=== PATIENT | female | born 1985 | race Hispanic/Latino ===

== ENCOUNTER 2018-10-20 21:03 | Emergency (ER) | payer OTHER ==
[2018-10-20 21:51] VITALS: BMI 25.9
[2018-10-20 22:19] LABS: SQUAMOUS EPITHIAL 3 /hpf (0-5); URINE BACTERIA FEW (<OCC); URINE BILIRUBIN NEGATIVE (NEGATIVE); URINE BLOOD NEGATIVE (NEGATIVE); URINE CLARITY Clear (Clear); URINE COLOR Yellow (YELLOW); URINE GLUCOSE (UA) NORMAL (Normal); URINE LEUKOCYTE ESTERASE 3+ Leu/uL (Negative); URINE PROTEIN NEGATIVE (NEGATIVE); URINE UROBILINOGEN NORMAL mg/dL (0.2-1.0)
[2018-10-20] MEDS ORDERED: Dextrose 5%/Lactated Ringer's 1,000 ML IV SCH (23:45)
[2018-10-20] MEDS ORDERED: Lactated Ringer's 1,000 ML IV SCH (23:45)
--- NOTE | 2018-10-21 00:20 | OBHP ---
Datetime: 10/20/2018 23:41 IP Adm Impression: , intrauterine ; No Active Labor; Intact Membranes IP Admit Plan: Observation/Evaluation Admit Comment, IP Provider: 32 y female G1 with an IUP t 36.4 weeks and sent from Dr. Richards's office for monitoring because FHT's in the office were aroun 115-120/ Pt denied any LOF, VB or VD and admits to adequate FM. + Velamentous cord Insertion detected in US today. PMHx Hypothyroidism PSHx Negative NKDA Social Hx Negative x 3 Medications :PNV, Levothyroxine and Calcium A/P: IUP at 36.4 weeks Velamentous cord insertionmm per US today Low Baseline of FHT's with mild variables NST Reactive Irregular contractions not painful and barely perceived by the patient UA with +LE and 20 WBC's and some dehydration D/W Dr. Richards and request to keep patient on observation with continuous monitoring Labs ordered and IV Hydration One dose of Ancef ordered 2 grams IV Will order BPP in AM, per Dr. Richards D/W Dr. Richards and request to Pelvic Type - PN: Adequate Extremities - PN: Normal Abdomen - PN: Normal Back - PN: Normal Breast - PN: Not Done Lungs - PN: Normal Heart - PN: Normal Thyroid - PN: Normal Neurologic - PN: Normal HEENT - PN: Normal General - PN: Normal Presentation-Admit: Vertex FHR - Baseline A Provider: 120 Membranes, Provider: Intact Contraction Comments Provider: Irregular Gestation - Est Wks by US: 36.4 IP Hx Assessment: No Care Records available at this time EGA AdmitDate IP: 36.4 Vital Signs Provider: Reviewed; Within Normal Limits IP Chief Complaint: evaluation NICHD Variability Prov Fetus A: Moderate 6-25bpm NICHD Accel Fetus A IP Provider: [id number] NICHD Decel Fetus A IP Provider: Variable Dilatation, Provider: 1 Effacement, Provider: 50 Station, Provider: -3 Genitourinary Exam: Normal DTRs - PN: Normal (Annotations: Data stored by CPN on behalf of user)
[2018-10-21 00:26] LABS: BASO % 0.4 % (0.0-2.0); EOS # 0.2 K/uL (0.0-0.7); EOS % 2.1 % (0.0-4.0); HEMOGLOBIN 11.4 g/dL (11.0-16.0); LYMPH # 1.8 K/uL (1.0-4.3); LYMPH % 16.5 % (20.0-40.0); MEAN CELL VOLUME 88.2 fL (81.0-99.0); MEAN CORPUSCULAR HEMOGLOBIN 30.6 pg (27.0-31.0); MEAN CORPUSCULAR HGB CONC 34.7 g/dL (33.0-37.0); MEAN PLATELET VOLUME 7.6 fL (7.2-11.7); MONO # 0.8 K/uL (0.0-0.8); MONO % 7.6 % (0.0-10.0); NEUT % 73.4 % (50.0-75.0); NRBC % 0.1 % (0.0-2.0); RBC 3.72 Mil/uL (3.80-5.20); RED CELL DISTRIBUTION WIDTH 13.4 % (11.5-14.5); WHITE BLOOD COUNT 10.9 K/uL (4.8-10.8)
[2018-10-21 00:29] LABS: ALBUMIN 3.6 g/dL (3.5-5.0); ALT/SGPT 23 U/L (9-52); AST/SGOT 18 U/L (14-36); BLOOD UREA NITROGEN 8 mg/dL (7-17); CALCIUM 9.6 mg/dl (8.6-10.4); GFR NON-AFRICAN AMERICAN > 60
[2018-10-21] MEDS ORDERED: ceFAZolin 2 GM in Sodium Chloride 0.9% 100 ML IVPB ONE (01:00)
--- NOTE | 2018-10-21 10:15 | US ---
PROCEDURE: HISTORY: LMP irregular estimated at 01/19/2018 Low FHT's baseline, Velamentous cord insertion COMPARISON: None TECHNIQUE: Transabdominal scanning of the maternal pelvis and a 2nd/ 3rd trimester with image documentation FINDINGS: Fetus: Single intrauterine gestation heart rate: Present at 132 beats per minute presentation: Cephalic Placenta: Posteriorwithout previa or abruption cervix clear from the internal cervical os greater than 2 cm. Amniotic fluid : Normal appearing: anatomy: Limited due to late gestation. Per prior history apparently filamentous cord insertion. The cord near the posterior placenta is noted on 1 image series 1, image 19. The head is in the cervix limiting further evaluation here. biometrics: Gestational age by ultrasound: 35 weeks 2 days +/-2 weeks 3 days Estimated weight: 2623 g +/-393.5 g Maternal factors: Uterus: Unremarkable. No myometrial masses Cervix:3.22 cm length Free fluid: None Biophysical profile: Breathin Gross body movements: 2 Limb tone: 2 Amniotic Fluid: 2 Total biophysical profile: 06/23 IMPRESSION: Single intrauterine gestation with normal cardiac activity. presentation - cephalic. No previa . Biophysical profile 06/23
[2018-10-21 15:18] VITALS: BP 91/52; PULSE 73; RESP 20; TEMP 98.4
== END 2018-10-21 10:50 | disposition home or self-care (01) ==
LOC: C.EROB 21:03
DX: O26.893 Other specified pregnancy related conditions, third trimester (principal); Z3A.36 36 weeks gestation of pregnancy
CPT/HCPCS: 76815; 76818; 80053; 81001; 85025; 86592; 86850; 86870; 86900; 87086; 96374; 99283; J0690; J7120